=== PATIENT | male | born 1960 | race Caucasian/White ===

== ENCOUNTER 2019-01-27 18:03 | Inpatient (IN) | payer OTHER ==
[~2019-01-27 18:03] MED LIST: ISOVUE-370 76%-LOCM 1 ML ONE
[2019-01-27 18:41] LABS: #Eosinphils 0.1 thou/uL (0.0-0.7); #Lymphocytes 3.3 thou/uL (1.20-3.40); #Monocytes 0.7 thou/uL (0.11-0.59); #Neutrophils 13.2 thou/uL (1.40-6.50); %Basophils 0.2 % (0.0-1.0); %Eosinophils 0.4 % (0.0-10.0); %Lymphocytes 18.9 % (21.0-51.0); %Monocytes 3.8 % (0.0-10.0); %Neutrophils 76.7 % (42.0-75.0); Mean Corpuscular HGB CONC 34.1 g/dL (32.0-36.0); Mean Corpuscular Hemoglobin 31.3 pg (27.0-31.0); Mean Corpuscular Volume 91.6 fL (78.0-98.0); Mean Platelet Volume 9.8 fL (7.4-10.4); Platelet Count 220 thou/uL (130-400); RBC Distribution Width 12.6 % (11.5-14.5); Red Blood Cell (RBC) Count 3.51 mill/uL (4.70-6.10); White Blood Cell (WBC) Count 17.3 thou/uL (4.8-10.8)
[2019-01-27 18:46] LABS: PTT 26.2 SEC (22.9-36.1); Prothrombin Time 13.5 SEC (12.0-14.7)
[2019-01-27 19:05] LABS: ALT (SGPT) 52 U/L (8-55); AST (SGOT) 37 U/L (5-34); Albumin 3.6 g/dL (3.5-5.0); Alkaline Phosphatase 168 U/L (40-150); Anion Gap 16 mmol/L (10-20); BUN (Urea Nitrogen) 60 mg/dL (8.4-25.7); Bilirubin, Total 0.7 mg/dL (0.2-1.2); Calc. Creatinine Clearance 0 mL/min (70-130); Calcium 9.3 mg/dL (7.8-10.44); Carbon Dioxide 24 mmol/L (22-29); Chloride 103 mmol/L (98-107); Estimated GFR-MDRD 59; Globulin 2.8 g/dL (2.4-3.5); Glucose 195 mg/dL (70-105); Protein, Total 6.4 g/dL (6.0-8.3); Sodium 138 mmol/L (136-145)
[2019-01-27 19:48] LABS: Bilirubin Negative (Negative); Blood, Urine Negative (Negative); Clarity CLEAR (Clear); Glucose, Urine (Dipstick) Negative (Negative); Leukocyte Negative (Negative); Nitrite Negative (Negative); Protein, Urine (Dipstick) Negative (Neg-Trace); Specific Gravity, Urine 1.045 (1.002-1.036); Urobilinogen 0.2 mg/dL (0.2-1.0)
--- NOTE | 2019-01-27 20:04 | CT ---
ABDOMEN CT WITH CONTRAST PELVIC CT WITH CONTRAST 01/27/19 HISTORY: 24 hours of dark tarry stools, abdominal pain. COMPARISON: None. FINDINGS: CT ABDOMEN: Clear lung bases. Small hiatal hernia is noted. Normal heart size. No significant pericardial fluid. The visualized aorta has a normal caliber. No periaortic fat stranding. Unremarkable gallbladder. Patent portal vein. Liver, spleen, pancreas and adrenal glands have appropriate attenuation. Upper normal gastrohepatic lymph nodes with minimal gastric varices. Nonobstructing 2 mm calculus in the lower pole of the right kidney. Bilaterally, no evidence of obstr uctive uropathy. Symmetric enhancement of the kidneys. No mesenteric mass, lymphadenopathy, free air or free fluid. Limited evaluation of the alimentary canal due to lack of oral contrast administration. No evidence o f small bowel obstruction. Ileocecal junction is unremarkable. Normal caliber appendix. Unremarkable colon. There is an occasional diverticulum in the sigmoid colon. No diverticulitis. There appears to be recanalization of the umbilical vein. Correlate clinically for portal hypertensio n. Minimal nodularity of the liver is noted. CT PELVIS: No mass, lymphadenopathy free air or free fluid. Unremarkable urinary bladder. No lytic or blastic lesions in the osseous structures. IMPRESSION: 1. No acute abnormality in the abdomen or pelvis. 2. Nodularity of the liver with recanalization umbilical vein suggesting cirrhotic change with p ortal hypertension. Nonemergent additional imaging is recommended such as hepatic doppler. 3. Nonobstructing calculus in the lower pole of the of the right kidney. Bilaterally, no obstruc tive uropathy. POS: ATUL
[2019-01-27] MEDS ORDERED: Ondansetron PF 4 MG/2 ML Vial IVP PRN (21:24)
[2019-01-27] MEDS ORDERED: Zolpidem Tartrate 5 MG TAB PO PRN (21:24)
[2019-01-27] MEDS ORDERED: Acetaminophen 325 MG TAB PO PRN (21:24)
[2019-01-27] MEDS ORDERED: Dextrose 50% Abboject 50 ML SYRINGE SLOW IVP PRN (21:32)
[2019-01-27] MEDS ORDERED: HumaLOG 300 UNITS/3 ML VIAL SC PRN ×2 (21:32)
[2019-01-27] MEDS ORDERED: Dextrose 5% in Water 1,000 ML IV PRN (21:32)
[2019-01-27] MEDS ORDERED: cloNIDine 0.1 MG TAB PO PRN (21:33)
[2019-01-27 21:42] VITALS: BMI 43.7
--- NOTE | 2019-01-27 21:45 | PDOC.EVN ---
Event Note - Event Note Event Note: H&P #[id number]
--- NOTE | 2019-01-27 22:08 | HP ---
ADMITTING COMPLAINT: Black tarry stools. HISTORY OF PRESENT ILLNESS: This is a 58-year-old male who presents with black tarry stools. States that he noticed it for the first time today. The patient states that he has been on a lot of ibuprofen lately, but does not state why he has been taking it. States that he gets them from [place] from some physician, however, he has not seen the physician frequently. According to the patient, he states that he is unaware of any past medical history, however, upon further questioning, he states that he has lower extremity swelling all the time, that apparently he was told he has heart disease as well and apparently is also a diabetic. The patient states that otherwise he does not feel he has any other medical issues. Does admit to drinking at times heavily. States that he does not smoke, but does smell of smoke. The patient otherwise denies any other associated symptoms. No alleviating or aggravating factors. No other associated complaints or problems. The patient is seen and examined in the ER. No family at bedside. ALLERGIES: NO KNOWN DRUG ALLERGIES. REVIEW OF SYSTEMS: All systems reviewed. Pertinent positives in HPI, otherwise negative. PAST MEDICAL HISTORY: Hypertension, diabetes mellitus, obesity, lower extremity edema. SOCIAL HISTORY: Drinker, nonsmoker. FAMILY HISTORY: Positive for hypertension, diabetes. PHYSICAL EXAMINATION: VITAL SIGNS: Blood pressure was 128/88, respiratory rate of 18, heart rate of 86, O2 saturations 98% on 2 L nasal cannula, temperature of 98%. GENERAL: The patient lying in bed, morbidly obese, no acute discomfort. HEENT: Pupils equal, round, and reactive to light and accommodation. Oral cavity moist and pink. Extraocular muscles intact. NECK: Supple, mobile, nontender. Thyroid appreciated. CARDIOVASCULAR: Distant heart sounds. S1, S2. No murmurs, rubs, or gallops appreciated. RESPIRATORY: Increased AP diameter. Clear to auscultation bilaterally. No rales, rhonchi, or wheezing appreciated. ABDOMEN: Distended. Positive bowel sounds. Soft, nontender. EXTREMITIES: 2+ peripheral pulses. 2+ bilateral lower extremity pitting edema. Trace bilateral upper extremity pitting edema. No cyanosis or clubbing noted. NEUROLOGICAL: Cranial nerves 2 through 12 intact. No loss of motor or sensory function. LABORATORY DATA: CBC shows a white count of 17.3, WBC count of 11, and coagulation panel normal. Chemistry panel shows a glucose of 195, a BUN of 60, creatinine of 1.26. Electrolytes normal. Alkaline phosphatase at 168, AST at 37. Urinalysis is positive for trace ketones, otherwise normal. The patient had a CT scan performed in the ER of the abdomen and pelvis with contrast, which shows no acute abnormalities in the abdomen or pelvis. Nodularity of the liver suggestive of cirrhosis noted and a nonobstructing kidney stone in the left pole of the kidney. No hydronephrosis or obstructive uropathy noted. ASSESSMENT: 1. Gastrointestinal bleed. 2. Azotemia. 3. Hypertension. 4. Obesity. 5. Diabetes mellitus type 2. 6. Lower extremity edema. 7. Heart failure. PLAN: This patient does not provide a good history. Seems apathetic to his physical condition and medical condition, unaware of what medications he takes or what medical history he really has. Significant digging needed to be done, so unclear exactly how accurate the patient is with regard to his history. Medical reconciliation has not been done. Per nurse, the went home to get the medications that we may reconcile them. At this point in time, we will admit the patient to Internal Medicine Team, change to inpatient service. Consult to GI. We will obtain echocardiogram. Start insulin for his diabetes. Would benefit from aspirin, Lovenox, however, given the GI bleed, we will hold off. At this point in time, we will start him on cholesterol medications, p.r.n. blood pressure medications. We will start him on diuretics for his edema and creatinine is undoubtedly going to go up because of removal of fluid and undilution of his baseline creatinine. No signs and symptoms of uremia. No family at bedside. The patient wishes to remain a full code. Overall prognosis appears poor simply because of the lack of personal insight on patient's side for care. At this point in time, case and plan were discussed with the patient at length. He understood and agreed with this plan. Job ID: [id number]
[2019-01-27] MEDS: Piperacillin/Tazobactam 3.375 GM in Sodium Chloride 0.9% 100 ML IVPB SCH (23:00)
[2019-01-28 05:46] LABS: #Eosinphils 0.1 thou/uL (0.0-0.7); #Lymphocytes 4.2 thou/uL (1.20-3.40); #Monocytes 0.7 thou/uL (0.11-0.59); #Neutrophils 8.7 thou/uL (1.40-6.50); %Basophils 0.3 % (0.0-1.0); %Eosinophils 0.9 % (0.0-10.0); %Lymphocytes 30.6 % (21.0-51.0); %Monocytes 5.3 % (0.0-10.0); Hemoglobin 8.8 g/dL (14.0-18.0); Mean Corpuscular HGB CONC 34.8 g/dL (32.0-36.0); Mean Corpuscular Hemoglobin 31.9 pg (27.0-31.0); Mean Corpuscular Volume 91.4 fL (78.0-98.0); Mean Platelet Volume 9.8 fL (7.4-10.4); Platelet Count 161 thou/uL (130-400); RBC Distribution Width 12.7 % (11.5-14.5); Red Blood Cell (RBC) Count 2.76 mill/uL (4.70-6.10); White Blood Cell (WBC) Count 13.8 thou/uL (4.8-10.8)
[2019-01-28] MEDS: Piperacillin/Tazobactam 3.375 GM in Sodium Chloride 0.9% 100 ML IVPB SCH ×3 (06:01→17:29)
[2019-01-28] MEDS: Furosemide 40 MG/4 ML VIAL SLOW IVP SCH ×2 (06:02→15:30)
[2019-01-28 06:06] LABS: ALT (SGPT) 40 U/L (8-55); AST (SGOT) 30 U/L (5-34); Albumin 3.1 g/dL (3.5-5.0); Alkaline Phosphatase 136 U/L (40-150); Bilirubin, Direct 0.2 mg/dL (0.1-0.3); Bilirubin, Total 0.5 mg/dL (0.2-1.2); Protein, Total 5.5 g/dL (6.0-8.3)
[2019-01-28 06:11] LABS: Anion Gap 13 mmol/L (10-20); BUN (Urea Nitrogen) 60 mg/dL (8.4-25.7); Calc. Creatinine Clearance 160 mL/min (70-130); Calcium 8.3 mg/dL (7.8-10.44); Carbon Dioxide 21 mmol/L (22-29); Chloride 107 mmol/L (98-107); Estimated GFR-MDRD 85; Glucose 184 mg/dL (70-105); Potassium 4.1 mmol/L (3.5-5.1); Sodium 137 mmol/L (136-145)
[2019-01-28] MEDS ORDERED: Pantoprazole 80 MG, Admixture Fee 1 EACH in Sodium Chloride 0.9% 100 ML IVP SCH (11:30)
[2019-01-28] MEDS ORDERED: Promethazine HCl 25 MG/ML VIAL IM PRN (14:02)
[2019-01-28] MEDS ORDERED: Ondansetron HCl/PF 4 MG/2 ML Vial IVP PRN (14:02)
[2019-01-28] MEDS ORDERED: Promethazine HCl 25 MG/ML VIAL SLOW IVP PRN (14:02)
--- NOTE | 2019-01-28 14:26 | PDOC.PN ---
- Subjective Encounter Start Date: 01/28/19 Encounter Start Time: 07:40 Pt seen for followup re: anemia. Denies chest pain or shortness fo breath. c/o light-headedness when standing up. - Objective Resuscitation Status - Order Detail: 01/27/19 21:24 Resuscitation Status Routine Resuscitation Status: FULL: Full Resuscitation Discussed with: patient GARRICK Reviewed: Yes Vital Signs & Weight: Vital Signs (12 hours) Temp Pulse Resp BP BP Pulse Ox 01/28/19 11:44 98.7 F 100 22 H 114/75 95 01/28/19 09:34 98.2 F 93 18 114/74 01/28/19 08:10 95 01/28/19 07:30 98.9 F 94 16 106/57 L 95 01/28/19 03:42 98.4 F 91 16 111/52 L 96 Weight Weight 285 lb 12.8 oz I&O: 01/27/19 01/28/19 01/29/19 06:59 06:59 06:59 Intake Total 440 Output Total 475 Balance -35 Result Diagrams: 01/28/19 04:55 01/28/19 04:55 Additional Labs: Accuchecks 01/28/19 01/28/19 01/27/19 11:50 05:51 22:39 POC Glucose 201 H 203 H 162 H Labs reviewed by me Phys Exam - Physical Examination Morbid obesity HEENT: moist MMs, sclera anicteric, oral pharynx no lesions, 2+ tonsils Neck: no nodes, no JVD, supple, full ROM Respiratory: no wheezing, no rales, no rhonchi, clear to auscultation bilateral Cardiovascular: RRR, no rub S1, s2 Gastrointestinal: soft, non-tender, positive bowel sounds distended Neurological: moves all 4 limbs Psychiatric: normal affect, A&O x 3 Dx/Plan (1) Symptomatic anemia Code(s): D64.9 - ANEMIA, UNSPECIFIED Status: Acute Comment: monitor hemoglobin, await GI service input. Start PPI drip. (2) DM2 (diabetes mellitus, type 2) Status: Chronic Comment: start accuchecks, insulin sliding scale (3) HTN (hypertension) Code(s): I10 - ESSENTIAL (PRIMARY) HYPERTENSION Status: Chronic Comment: controlled (4) Dyslipidemia Code(s): E78.5 - HYPERLIPIDEMIA, UNSPECIFIED Status: Chronic Comment: continue statin (5) Morbid obesity Code(s): E66.01 - MORBID (SEVERE) OBESITY DUE TO EXCESS CALORIES Status: Chronic - Plan * . Review of Systems - Review of Systems Constitutional: negative: fever, chills, sweats, weakness, malaise Cardiovascular: negative: chest pain, palpitations, orthopnea, paroxysmal nocturnal dyspnea, edema, light headedness Gastrointestinal: negative: Nausea, Vomiting, Abdominal Pain, Diarrhea, Constipation, Melena, Hematochezia Genitourinary: negative: Dysuria, Frequency, Incontinence, Hematuria, Retention Skin: negative: Rash, Lesions, Munir, Bruising - Medications/Allergies Allergies/Adverse Reactions: Allergies Allergy/AdvReac Type Severity Reaction Status Date / Time No Known Drug Allergies Allergy Verified 01/27/19 22:43 Medications: Current Medications Acetaminophen (Tylenol) 650 mg PO Q4H PRN PRN Reason: Headache/Fever/Mild Pain (1-3) Atorvastatin Calcium (Lipitor) 40 mg PO HS [facility] Clonidine (Catapres) 0.1 mg PO Q4H PRN PRN Reason: FOR SBP > 170mmHg Dextrose/Water (Dextrose 50%) 25 gm SLOW IVP PRN PRN PRN Reason: Hypoglycemia Furosemide (Lasix) 40 mg SLOW IVP 0600,1400 [facility] Last Admin: 01/28/19 06:02 Dose: 40 mg Glucagon (Glucagon) 1 mg IM PRN PRN PRN Reason: Hypoglycemia Dextrose/Water (D5w) 1,000 mls @ 0 mls/hr IV .Q0M PRN PRN Reason: Hypoglycemia Insulin Glargine 10 units/ (Miscellaneous Medication) 0.1 mls @ 0 mls/hr SC HS [facility] Piperacillin Sod/Tazobactam (Sod 3.375 gm/ Sodium Chloride) 100 mls @ 200 mls/ hr IVPB Q6HR [facility] Last Admin: 01/28/19 11:56 Dose: 100 mls Sodium Chloride (Normal Saline 0.9%) 1,000 mls @ 75 mls/hr IV .[id number] [facility] Pantoprazole Sodium 80 mg/Miscellaneous Medication 1 each/ Sodium Chloride 100 mls @ 10 mls/hr IVP INF [facility] Insulin Human Lispro (Humalog) 0 units SC .MILD SLIDING SCALE PRN PRN Reason: Mild Correctional Scale Insulin Human Lispro (Humalog) 0 units SC .BEDTIME SLIDING SC PRN PRN Reason: Bedtime Correctional Scale Ondansetron HCl (Zofran) 4 mg IVP Q6H PRN PRN Reason: Nausea/Vomiting Ondansetron HCl (Pacu-Zofran) 4 mg IVP ONE PRN PRN Reason: Nausea/Vomiting Stop: 01/28/19 17:02 Promethazine HCl (Pacu-Phenergan) 6.25 mg SLOW IVP ONE PRN PRN Reason: Nausea/Vomiting Stop: 01/28/19 17:02 Promethazine HCl (Pacu-Phenergan) 6.25 mg IM ONE PRN PRN Reason: Nausea/Vomiting Stop: 01/28/19 17:02 Sodium Chloride (Flush - Normal Saline) 10 ml IVF Q12HR PRN PRN Reason: Saline Flush Last Admin: 01/27/19 22:58 Dose: 10 ml Zolpidem Tartrate (Ambien) 5 mg PO HSPRN PRN PRN Reason: Insomnia
[2019-01-28] MEDS ORDERED: PROPOFOL 200 MG/20 ML VIAL ONE (14:31)
[2019-01-28] MEDS ORDERED: Lidocaine 1% PF 5 ML VIAL ONE (14:31)
[2019-01-28] MEDS ORDERED: ePHEDrine 50 MG/ML VIAL ONE (14:31)
--- NOTE | 2019-01-28 15:43 | CON ---
DATE OF CONSULTATION: 01/28/2019 CHIEF COMPLAINT: Weakness, dizziness, and black stools. HISTORY OF PRESENT ILLNESS: Mr. Ross is a 58-year-old man, who presented to the emergency room with black stools that started yesterday with multiple bowel movements. He passed only a small amount of black stool this morning. He did have some dry heaves yesterday, but no ongoing vomiting and no hematemesis. He has had some lower abdominal discomfort when his abdomen jiggles when he is writhing, but otherwise no new abdominal pain. He has had no chest pain or shortness of breath with this. He has felt weak and dizzy over the last week. He takes ibuprofen 1 tablet, which he believes is over the counter 200 mg dose once a day for chronic right knee pain. He had a colonoscopy around 10 years ago and does not recall where that was done, but it was at age 49. PAST MEDICAL HISTORY: Hypertension, diabetes mellitus, gout, and possible heart issues with lower extremity chronic swelling. PAST SURGICAL HISTORY: Hernia repair, wrist surgery. FAMILY HISTORY: Negative for GI malignancy. SOCIAL HISTORY: He drinks 1 or 2 drinks per month. No drugs. No smoking. ALLERGIES: NO KNOWN DRUG ALLERGIES. MEDICATIONS: Prior to admission; 1. Ibuprofen. 2. Metformin. 3. Lisinopril. 4. Allopurinol. REVIEW OF SYSTEMS: Negative x10 systems reviewed except as stated in the history of present illness. PHYSICAL EXAMINATION: VITAL SIGNS: Temperature 98.7, pulse 100, and blood pressure 114/75. GENERAL: He is in no acute distress. Alert and oriented x3. He is obese. HEENT: Eyes have no scleral icterus. Oropharynx is clear without lesions. NECK: No cervical or supraclavicular lymphadenopathy. LUNGS: Clear to auscultation bilaterally. HEART: Regular rate and rhythm without murmur. ABDOMEN: Soft. Mild tenderness in the lower abdomen without guarding. Bowel sounds are present. EXTREMITIES: 2+ pitting lower extremity edema. NEUROLOGIC: Cranial nerves are grossly intact. LABORATORY DATA: White blood cell count is 13.8 down from 17.3, hemoglobin is 8.8 down from 11.0 last night, and platelets 161. INR 1.0. Creatinine 0.9 down from 1.26 last night with a BUN of 60. Bilirubin 0.5, AST 30, ALT 40, alkaline phosphatase is 136, and albumin 3.1. INR 1.0. IMPRESSION: 1. Acute gastrointestinal bleed presenting with melena and weakness and dizziness. Suggestive of peptic ulcer given the chronic NSAID use. 2. Anemia of acute blood loss. RECOMMENDATIONS: 1. Proton pump inhibitor. 2. EGD today. 3. He can do a colonoscopy as an outpatient for routine screening in the future. Job ID: [id number]
--- NOTE | 2019-01-28 15:47 | OP ---
DATE OF PROCEDURE: 01/28/2019 PROCEDURE PERFORMED: Esophagogastroduodenoscopy with biopsy. PREOPERATIVE DIAGNOSES: Anemia of acute blood loss and acute gastrointestinal bleed. DESCRIPTION OF PROCEDURE: Informed consent was obtained from the patient. He was sedated with total intravenous anesthesia. The bite block was placed and the endoscope was advanced easily to the second portion of the duodenum and retroflexion was performed in the stomach. The esophagus was normal. The GE junction was normal. The stomach had erosive gastritis in the antrum. Biopsies were obtained to rule out H pylori. Retroflexed views in the stomach were normal. He had a 9-mm ulcer in the pyloric channel. This had a clean white base without any stigmata of recent bleeding. The first and second portions of the duodenum were normal. Air was suctioned from the stomach. Procedure was completed. IMPRESSION: 1. Pyloric channel ulcer measuring 9 mm with a clean white base and without stigmata of recent bleeding. 2. Erosive gastritis. 3. Otherwise, normal esophagogastroduodenoscopy. Gastric biopsies are taken to rule out Helicobacter pylori. RECOMMENDATIONS: 1. Await histopathology. 2. Proton pump inhibitor daily. 3. Advance diet. 4. Avoid NSAIDs. 5. Follow up in GI Clinic for a screening colonoscopy in the future. 6. Please note that his weight is 285 pounds with a height of 5 feet and 6 inches. Job ID: [id number]
[2019-01-28] MEDS: Sodium Chloride 0.9% 1,000 ML IV SCH (16:45)
[2019-01-28] MEDS: Atorvastatin Calcium 40 MG TAB PO SCH (20:39)
[2019-01-28] MEDS: Insulin Glargine 10 UNITS in Pre-Filled Syringe 1 EACH SC SCH (20:39)
[2019-01-29] MEDS: Piperacillin/Tazobactam 3.375 GM in Sodium Chloride 0.9% 100 ML IVPB SCH ×4 (01:00→17:09)
[2019-01-29] MEDS: Sodium Chloride 0.9% 1,000 ML IV SCH ×2 (01:00→16:13)
[2019-01-29] MEDS: Furosemide 40 MG/4 ML VIAL SLOW IVP SCH (05:37)
[2019-01-29] MEDS ORDERED: Sodium Chloride 0.9% 1,000 ML IV SCH (05:45)
[2019-01-29 08:21] LABS: #Basophils 0.1 thou/uL (0.0-0.2); #Eosinphils 0.3 thou/uL (0.0-0.7); #Lymphocytes 4.7 thou/uL (1.20-3.40); #Monocytes 0.7 thou/uL (0.11-0.59); #Neutrophils 9.8 thou/uL (1.40-6.50); %Basophils 0.5 % (0.0-1.0); %Lymphocytes 30.2 % (21.0-51.0); %Monocytes 4.7 % (0.0-10.0); %Neutrophils 62.6 % (42.0-75.0); Hemoglobin 8.3 g/dL (14.0-18.0); Mean Corpuscular HGB CONC 33.4 g/dL (32.0-36.0); Mean Corpuscular Hemoglobin 31.5 pg (27.0-31.0); Mean Corpuscular Volume 94.2 fL (78.0-98.0); Mean Platelet Volume 9.5 fL (7.4-10.4); Platelet Count 189 thou/uL (130-400); RBC Distribution Width 12.9 % (11.5-14.5); Red Blood Cell (RBC) Count 2.62 mill/uL (4.70-6.10); White Blood Cell (WBC) Count 15.7 thou/uL (4.8-10.8)
[2019-01-29 08:40] LABS: Anion Gap 12 mmol/L (10-20); BUN (Urea Nitrogen) 35 mg/dL (8.4-25.7); Calc. Creatinine Clearance 128 mL/min (70-130); Calcium 8.4 mg/dL (7.8-10.44); Carbon Dioxide 25 mmol/L (22-29); Chloride 105 mmol/L (98-107); Estimated GFR-MDRD 66; Glucose 158 mg/dL (70-105); Potassium 4.4 mmol/L (3.5-5.1); Sodium 138 mmol/L (136-145)
[2019-01-29 13:01] LABS: Hemoglobin 7.8 g/dL (14.0-18.0)
--- NOTE | 2019-01-29 13:44 | PRG ---
DATE OF SERVICE: 01/29/2019 SUBJECTIVE: Mr. Ross has passed a few black stools today. He has no abdominal pain, and he has tolerated a solid diet well. OBJECTIVE: VITAL SIGNS: Temperature 97.7, pulse 82, blood pressure 125/77. GENERAL: He is in no acute distress. Alert and oriented x3. LUNGS: Clear to auscultation bilaterally. HEART: Regular rate and rhythm without murmur. ABDOMEN: Soft, nontender, nondistended. Bowel sounds are present. EXTREMITIES: No lower extremity edema. LABORATORY DATA: His white blood cell count was 15.7 this morning. Hemoglobin 7.8, down from 8.3 yesterday, and platelets 189. IMPRESSION: 1. Pyloric channel ulcer without active bleeding at the time of the procedure yesterday. 2. Anemia secondary to acute blood loss. His hemoglobin trended down slightly daily, still passing out some black stools. 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 I think it would be better to watch him overnight and transfuse a unit of blood today and recheck his blood count in the morning. RECOMMENDATIONS: 1. Continue proton pump inhibitor by mouth. 2. Await gastric biopsies to rule out H. pylori. 3. Stop NSAIDs. He had been taking Aleve twice daily after discussion with his . 4. He can take Tylenol instead for pain. 5. He can follow up in GI clinic to schedule routine colon cancer screening. 6. Transfusion today and recheck hemoglobin tomorrow morning. It is anticipated they will discharge home tomorrow. Job ID: [id number]
--- NOTE | 2019-01-29 18:14 | PDOC.PN ---
- Subjective Encounter Start Date: 01/29/19 Encounter Start Time: 10:40 Pt seen for followup re: symptomatic anemia. Says he feels better. - Objective Resuscitation Status - Order Detail: 01/27/19 21:24 Resuscitation Status Routine Resuscitation Status: FULL: Full Resuscitation Discussed with: patient GARRICK Reviewed: Yes Vital Signs & Weight: Vital Signs (12 hours) Temp Pulse Resp BP Pulse Ox 01/29/19 16:00 98.2 F 80 16 103/62 100 01/29/19 11:48 97.7 F 82 16 125/77 94 L 01/29/19 07:58 98.7 F 75 16 133/80 97 Weight Weight 285 lb 12.8 oz I&O: 01/28/19 01/29/19 01/30/19 06:59 06:59 06:59 Intake Total 440 0 Output Total 475 Balance -35 0 Result Diagrams: 01/29/19 12:42 01/29/19 08:04 Additional Labs: Accuchecks 01/29/19 01/29/19 01/29/19 16:47 10:26 05:22 POC Glucose 152 H 151 H 136 H 01/28/19 01/28/19 20:39 17:41 POC Glucose 188 H 210 H labs reviewed by me Phys Exam - Physical Examination Constitutional: NAD HEENT: moist MMs Neck: supple Respiratory: clear to auscultation bilateral Cardiovascular: RRR Gastrointestinal: soft Neurological: moves all 4 limbs Psychiatric: normal affect Dx/Plan (1) Symptomatic anemia Code(s): D64.9 - ANEMIA, UNSPECIFIED Status: Acute Comment: s/p EGD (2) Pyloric channel ulcer Code(s): K25.9 - GASTRIC ULCER, UNSP ACUTE OR CHRONIC, W/O HEMOR OR PERF Status: Acute Comment: seen on EGD yesterday. Continue PPI, avoid NSAIDs. Follow path. (3) DM2 (diabetes mellitus, type 2) Status: Chronic Comment: reasonably controlled (4) HTN (hypertension) Code(s): I10 - ESSENTIAL (PRIMARY) HYPERTENSION Status: Chronic Comment: controlled (5) Dyslipidemia Code(s): E78.5 - HYPERLIPIDEMIA, UNSPECIFIED Status: Chronic Comment: on statin (6) Morbid obesity Code(s): E66.01 - MORBID (SEVERE) OBESITY DUE TO EXCESS CALORIES Status: Chronic - Plan * . Review of Systems - Review of Systems Cardiovascular: negative: chest pain, palpitations, orthopnea, paroxysmal nocturnal dyspnea, edema, light headedness Gastrointestinal: negative: Nausea, Vomiting, Abdominal Pain, Diarrhea, Constipation, Melena, Hematochezia - Medications/Allergies Allergies/Adverse Reactions: Allergies Allergy/AdvReac Type Severity Reaction Status Date / Time No Known Drug Allergies Allergy Verified 01/27/19 22:43 Medications: Current Medications Acetaminophen (Tylenol) 650 mg PO Q4H PRN PRN Reason: Headache/Fever/Mild Pain (1-3) Atorvastatin Calcium (Lipitor) 40 mg PO [facility] Last Admin: 01/28/19 20:39 Dose: 40 mg Clonidine (Catapres) 0.1 mg PO Q4H PRN PRN Reason: FOR SBP > 170mmHg Dextrose/Water (Dextrose 50%) 25 gm SLOW IVP PRN PRN PRN Reason: Hypoglycemia Furosemide (Lasix) 40 mg PO DAILY[facility] Glucagon (Glucagon) 1 mg IM PRN PRN PRN Reason: Hypoglycemia Dextrose/Water (D5w) 1,000 mls @ 0 mls/hr IV .Q0M PRN PRN Reason: Hypoglycemia Insulin Glargine 10 units/ (Miscellaneous Medication) 0.1 mls @ 0 mls/hr SC [facility] Last Admin: 01/28/19 20:39 Dose: 0.1 mls Piperacillin Sod/Tazobactam (Sod 3.375 gm/ Sodium Chloride) 100 mls @ 200 mls/ hr IVPB Q6HR [facility] Last Admin: 01/29/19 17:09 Dose: 100 mls Insulin Human Lispro (Humalog) 0 units SC .MILD SLIDING SCALE PRN PRN Reason: Mild Correctional Scale Last Admin: 01/28/19 17:40 Dose: 3 unit Insulin Human Lispro (Humalog) 0 units SC .BEDTIME SLIDING SC PRN PRN Reason: Bedtime Correctional Scale Ondansetron HCl (Zofran) 4 mg IVP Q6H PRN PRN Reason: Nausea/Vomiting Pantoprazole Sodium (Protonix) 40 mg PO BID [facility] Last Admin: 01/29/19 08:05 Dose: 40 mg Sodium Chloride (Flush - Normal Saline) 10 ml IVF Q12HR PRN PRN Reason: Saline Flush Last Admin: 01/27/19 22:58 Dose: 10 ml Sodium Chloride (Flush - Normal Saline) 10 ml IVF PRN PRN PRN Reason: Saline Flush Zolpidem Tartrate (Ambien) 5 mg PO HSPRN PRN PRN Reason: Insomnia
[2019-01-29] MEDS: Insulin Glargine 10 UNITS in Pre-Filled Syringe 1 EACH SC SCH (20:49)
[2019-01-29] MEDS: Atorvastatin Calcium 40 MG TAB PO SCH (20:49)
[2019-01-30 06:34] LABS: #Basophils 0.1 thou/uL (0.0-0.2); #Eosinphils 0.2 thou/uL (0.0-0.7); #Lymphocytes 4.5 thou/uL (1.20-3.40); #Monocytes 0.8 thou/uL (0.11-0.59); #Neutrophils 8.7 thou/uL (1.40-6.50); %Basophils 0.4 % (0.0-1.0); %Eosinophils 1.7 % (0.0-10.0); %Lymphocytes 31.3 % (21.0-51.0); %Monocytes 5.4 % (0.0-10.0); %Neutrophils 61.1 % (42.0-75.0); Mean Corpuscular HGB CONC 33.7 g/dL (32.0-36.0); Mean Corpuscular Hemoglobin 31.6 pg (27.0-31.0); Mean Corpuscular Volume 93.6 fL (78.0-98.0); Mean Platelet Volume 9.3 fL (7.4-10.4); Platelet Count 167 thou/uL (130-400); RBC Distribution Width 13.1 % (11.5-14.5); Red Blood Cell (RBC) Count 2.84 mill/uL (4.70-6.10); White Blood Cell (WBC) Count 14.2 thou/uL (4.8-10.8)
[2019-01-30 06:54] LABS: Anion Gap 9 mmol/L (10-20); BUN (Urea Nitrogen) 22 mg/dL (8.4-25.7); Calc. Creatinine Clearance 146 mL/min (70-130); Calcium 8.3 mg/dL (7.8-10.44); Carbon Dioxide 26 mmol/L (22-29); Chloride 107 mmol/L (98-107); Estimated GFR-MDRD 76; Glucose 140 mg/dL (70-105); Potassium 4.1 mmol/L (3.5-5.1); Sodium 138 mmol/L (136-145)
[2019-01-30] MEDS ORDERED: Furosemide 40 MG TAB PO SCH (07:30)
[2019-01-30 12:21] VITALS: BP 138/79; TEMP 98.8
--- NOTE | 2019-01-31 03:27 | DIS ---
DATE OF ADMISSION: 01/27/2019 DATE OF DISCHARGE: 01/30/2019 PRIMARY CARE PROVIDER: Dr. Kendrick Quesada. DISCHARGE DIAGNOSES: 1. Symptomatic anemia. 2. Pyloric channel ulcer. 3. Anemia of acute blood loss. CONDITION OF PATIENT ON THE DAY OF DISCHARGE: Stable. I assessed Mr. Ross on the day of discharge. He denies any chest pain or shortness of breath. Vital signs are stable. S1 and S2 are heard, regular. Lungs are clear to auscultation bilaterally. DISCHARGE MEDICATIONS: 1. Allopurinol 200 mg at bedtime. 2. Vitamin C 500 mg daily. 3. Lipitor 10 mg at bedtime. 4. Lisinopril/hydrochlorothiazide 10/12.5 mg daily. 5. Magnesium 400 mg daily. 6. Metformin 1000 mg 2 times a day. 7. Tamsulosin 0.4 mg at bedtime. 8. Protonix 40 mg 2 times a day. HOSPITAL COURSE: Mr. Ross is a pleasant 58-year-old gentleman, who was admitted to [facility] on 01/27/2019, for symptomatic anemia secondary to GI bleed. He was also found to be in volume overload and treated with diuretics. A 2D echocardiogram showed left ventricular ejection fraction of 65% to 70%, normal right ventricular size and function, and normal-sized left atrium. He also had leukocytosis at the time of admission and was treated with empiric antibiotics. He was seen by Gastroenterology Service, Dr. Hatfield. He was treated with PPI. He underwent EGD on 01/28/2019. He was found to have a pyloric channel ulcer measuring 9 mm with a clean white base and without stigmata of recent bleeding, erosive gastritis. Gastric biopsies were taken to rule out H pylori infection. He will need to follow up with Gastroenterology Service as outpatient. He improved clinically. He was on NSAIDs prior to this admission. He has been advised to stop NSAID use. Diuretics were also stopped at the time of discharge. Antibiotics were also discontinued. Many thanks for allowing me to participate in your patient's care. Please feel free to contact me with any questions or concerns. LABORATORY DATA: On the day of discharge, he has sodium 138, potassium 4.1, creatinine 1. White count 14,200, hemoglobin 9, following transfusion of 1 unit packed RBCs and platelet count 167,000. DISCHARGE DESTINATION: Home. TOTAL AMOUNT OF TIME SPENT COORDINATING THIS DISCHARGE: 33 minutes. Please note, he has been advised to have his CBC checked in 3 to 5 days through his primary care provider's office to look for evidence of resolution of leukocytosis as well as stabilization of his hemoglobin level. Job ID: [id number]
== END 2019-01-30 13:22 | disposition home or self-care (01) | DRG 378 ==
LOC: ERS 18:03 → OBSVTOIN 21:35 → 2SW 21:35 → T4-A 01-28 09:25
PROVIDERS: ADMIT Internal Medicine; ATTEND Internal Medicine
PROC: 0DB68ZX Excision of Stomach, Via Natural or Artificial Opening Endoscopic, Diagnostic (ICD-10-PCS; principal; 2019-01-28)
PROC: 30233N1 Transfusion of Nonautologous Red Blood Cells into Peripheral Vein, Percutaneous Approach (ICD-10-PCS; 2019-01-29)
DX: K92.2 Gastrointestinal hemorrhage, unspecified (principal); D62 Acute posthemorrhagic anemia; Z68.41 Body mass index [BMI] 40.0-44.9, adult; R79.89 Other specified abnormal findings of blood chemistry; I10 Essential (primary) hypertension; E11.9 Type 2 diabetes mellitus without complications; M10.9 Gout, unspecified; E78.5 Hyperlipidemia, unspecified; E66.01 Morbid (severe) obesity due to excess calories; K25.9 Gastric ulcer, unspecified as acute or chronic, without hemorrhage or perforation; K29.60 Other gastritis without bleeding; Z98.890 Other specified postprocedural states
CPT/HCPCS: 36415; 36416; 36430; 74177; 80048; 80053; 80076; 81003; 82274; 85025; 85610; 85730; 86850; 86900; 86901; 88305; 88312; 93306; C9113; J1825; J1940; J2001; J2543; J2704; J3490; J7050; P9016; Q9966

== ENCOUNTER 2019-02-23 07:09 | Outpatient (CLI) | payer OTHER ==
--- NOTE | 2019-02-23 07:51 | ULT ---
Hepatic ultrasound with duplex evaluation INDICATION: Nodule hyperplasia of the liver TECHNIQUE: Grayscale, color Doppler and spectral Doppler images were obtained of the right upper quad rant of the abdomen as well as the hepatic vasculature. Comparisons are made with a prior CT of the abdomen and pelvis dated January 27, 2019. FINDINGS: Again seen is a cirrhotic morphology to the liver with recanalization of the umbilical vein. No suspi cious focal hepatic lesion is identified. The visualized gallbladder was normal appearing. The common bile duct measured 4.5 mm. Visualized aspects of the pancreas and aorta were within normal garvey its. Visualized IVC is within normal limits. The spleen is enlarged measuring 15.13 cm. There is appropriate hepatopedal flow seen within the hepatic artery and portal vein. The splenic vein was not well interrogated. The splenic artery appeared within normal limits. Appropriate flow seen within the hepatic veins. IMPRESSION: 1. Cirrhosis with findings of portal hypertension. Appropriate flow is seen within a majority of the hepatic vessels. The splenic vein was not well interrogated.
== END 2019-02-23 07:10 | disposition home or self-care (01) ==
LOC: BICULT 07:09
PROVIDERS: ATTEND Family Medicine
DX: K76.89 Other specified diseases of liver (principal); K74.60 Unspecified cirrhosis of liver
CPT/HCPCS: 36415; 76705; 80061; 80074; 80076; 82043; 82103; 82104; 82105; 83036; 83516; 83540; 83550; 84550; 85025; 85610; 86704; 86706; 86708; 86803; 87340; G0103

== ENCOUNTER 2019-06-02 05:58 | Day surgery (SDC) | payer OTHER ==
[2019-06-01 09:29] VITALS: BMI 45.1
[2019-06-02] MEDS ORDERED: PROPOFOL 20 ML ONE (06:31)
[2019-06-02] MEDS ORDERED: ceFAZolin Sodium (SDC) 2 GM/100 ML BAG ONE (06:37)
[2019-06-02] MEDS ORDERED: Fentanyl 100 MCG/2 ML VIAL ONE ×2 (06:49→08:31)
[2019-06-02] MEDS ORDERED: Bupivacaine HCl 0.5%/Epinephrine 1:200,000/PF 30 ml Vial ONE ×2 (07:50→13:45)
[2019-06-02] MEDS ORDERED: HYDROcodone/Acetaminophen 5/325 mg Tablet ONE (09:56)
[2019-06-02] MEDS ORDERED: Lidocaine 2% w/Epinephrine 1:200K 20 ML VIAL ONE (13:45)
[2019-06-02] MEDS ORDERED: Ketorolac Tromethamine 30 MG/ML VIAL ONE (13:54)
[2019-06-02] MEDS ORDERED: ePHEDrine 50 MG/ML VIAL ONE (13:54)
[2019-06-02] MEDS ORDERED: Lidocaine 1% PF 5 ML VIAL ONE (13:54)
[2019-06-02] MEDS ORDERED: PROPOFOL 200 MG/20 ML VIAL ONE (13:54)
[2019-06-02] MEDS ORDERED: Ondansetron PF 4 MG/2 ML Vial ONE (13:54)
--- NOTE | 2019-06-02 14:57 | OP ---
DATE OF PROCEDURE: 06/02/2019 PREOPERATIVE DIAGNOSIS: Medial meniscus tear, right knee. POSTOPERATIVE DIAGNOSIS: Medial meniscus tear, right knee. PROCEDURE PERFORMED: Arthroscopic partial medial meniscectomy. ANESTHESIA: General. ESTIMATED BLOOD LOSS: Minimal. SPECIMENS: None. DRAINS: None. COMPLICATIONS: None. DESCRIPTION OF PROCEDURE: The patient was taken to the operating room, where general anesthesia was induced. Right leg was prepped and draped in usual sterile fashion. He has no significant arthritis in his tibial or tibiofemoral compartment. He had a complex tear involving most of the posterior horn of the medial meniscus. This was debrided using basket forceps and smoothed using 4-0 full-radius resector. ACL was intact. Lateral compartment was intact. Knee was irrigated and drained. Sterile dressings were applied. Job ID: [id number]
== END 2019-06-02 10:08 | disposition home or self-care (01) ==
LOC: SDC 05:58
PROVIDERS: ATTEND Orthopaedic Surgery
PROC: 0SBC4ZZ Excision of Right Knee Joint, Percutaneous Endoscopic Approach (ICD-10-PCS; principal; 2019-06-02)
DX: S83.241A Other tear of medial meniscus, current injury, right knee, initial encounter (principal); I10 Essential (primary) hypertension; E11.9 Type 2 diabetes mellitus without complications; E78.5 Hyperlipidemia, unspecified; M10.9 Gout, unspecified; Z79.84 Long term (current) use of oral hypoglycemic drugs; Z79.899 Other long term (current) drug therapy
CPT/HCPCS: J0670; J0690; J1885; J2001; J2405; J2704; J3010; J3490